=== PATIENT | female | born 1950 | race Caucasian/White ===

== ENCOUNTER 2017-03-10 18:59 | Emergency (ER) | payer MEDICARE, OTHER ==
[~2017-03-10 18:59] MED LIST: Iopamidol 370 76% 100 ML VIAL ONE
[2017-03-10 20:24] LABS: Bilirubin Negative (Negative); Blood, Urine Negative (Negative); Clarity Clear (Clear); Glucose, Urine (Dipstick) Negative (Negative); Leukocyte Trace (Negative); Nitrite Negative (Negative); Protein, Urine (Dipstick) Negative (Neg-Trace); Urobilinogen 0.2 mg/dL (0.2-1.0)
[2017-03-10 20:26] LABS: #Basophils 0.1 thou/uL (0.0-0.2); #Eosinphils 0.1 thou/uL (0.0-0.7); #Lymphocytes 1.3 thou/uL (1.20-3.40); #Neutrophils 5.3 thou/uL (1.40-6.50); %Basophils 1.9 % (0.0-1.0); %Eosinophils 1.6 % (0.0-10.0); %Lymphocytes 16.2 % (21.0-51.0); %Monocytes 13.2 % (0.0-10.0); %Neutrophils 67.1 % (42.0-75.0); Hemoglobin 13.6 g/dL (12.0-16.0); Mean Corpuscular HGB CONC 33.5 g/dL (32.0-36.0); Mean Corpuscular Hemoglobin 31.9 pg (27.0-31.0); Mean Corpuscular Volume 95.2 fl (81.0-99.0); Mean Platelet Volume 9.5 fL (7.4-10.4); Platelet Count 170 thou/uL (130-400); RBC Distribution Width 11.6 % (11.5-14.5); Red Blood Cell (RBC) Count 4.27 mill/uL (4.20-5.40); White Blood Cell (WBC) Count 7.8 thou/uL (4.8-10.8)
[2017-03-10 20:36] LABS: ALT (SGPT) 18 U/L (8-55); AST (SGOT) 15 U/L (5-34); Albumin 4.2 g/dL (3.4-4.8); Alkaline Phosphatase 61 U/L (40-150); Anion Gap 16 mmol/L (10-20); BUN (Urea Nitrogen) 15 mg/dL (9.8-20.1); Bilirubin, Total 0.6 mg/dL (0.2-1.2); Calc. Creatinine Clearance 0 mL/min (70-130); Calcium 9.5 mg/dL (7.8-10.44); Carbon Dioxide 27 mmol/L (23-31); Chloride 104 mmol/L (98-107); Estimated GFR-MDRD 77; Globulin 2.4 g/dL (2.4-3.5); Glucose 100 mg/dL (80-115); Lipase 30 U/L (8-78); Potassium 3.7 mmol/L (3.5-5.1); Protein, Total 6.6 g/dL (6.0-8.3); Sodium 143 mmol/L (136-145)
[2017-03-10 20:37] LABS: Bacteria/HPF 1+ HPF (None Seen); RBC/HPF 0-3 HPF (0-3); Renal Epithelial 0-3 HPF (0-3); Squamous Epithelial 0-3 HPF (0-3); Transitional Epithelial 0-3 HPF (0-3)
--- NOTE | 2017-03-10 21:08 | CT ---
ABDOMEN AND PELVIS CT WITH CONTRAST 03/10/17 CLINICAL HISTORY: Left lower quadrant pain. FINDINGS: Volume loss is seen at the lung bases. There is evidence of prior cholecystectomy. The pancreas is un remarkable. No hydronephrosis or adrenal mass. Punctate hypoattenuation of the posterior segment righ t hepatic lobe is too small to further characterize. Spleen is normal in appearance. There is focal m ural thickening of the distal aspect of the descending colon and proximal sigmoid colon with surround ing inflammatory fat stranding. There are colonic diverticula of this region. No free air. There are patulous bilateral fat containing inguinal rings. Scattered vascular disease present. The imaged osse ous structures are nonacute in appearance. There is a at containing and bowel containing hernia of th e umbilical region without inflammation. IMPRESSION: Focal mural thickening and inflammation of the left hemicolon at the junction of the distal descendin g colon and sigmoid colon. There are diverticula in this region. Findings favor acute diverticulitis. There is a focal hypodensity suggestive of edema and pericolonic inflammatory fluid. The possibility of a small developing complex fluid collection cannot be excluded, although there is no evidence to indicate a drainable abscess at this time. As necessary, imaging followup may be obtained. POS: [facility]
[2017-03-10] MEDS ORDERED: Ciprofloxacin 500 MG TAB ONE (21:24)
[2017-03-10] MEDS ORDERED: metroNIDAZOLE 250 MG TAB ONE (21:24)
== END 2017-03-10 21:48 | disposition home or self-care (01) ==
LOC: MADERS 18:59
DX: K57.92 Diverticulitis of intestine, part unspecified, without perforation or abscess without bleeding (principal); I10 Essential (primary) hypertension; E03.9 Hypothyroidism, unspecified; E78.5 Hyperlipidemia, unspecified; Z79.899 Other long term (current) drug therapy
CPT/HCPCS: 36415; 74177; 80053; 81003; 81015; 83690; 85025